=== PATIENT | female | born 1955 | race Asian ===

== ENCOUNTER 2025-07-24 14:51 | Inpatient (IN) | payer OTHER, MEDICARE, MEDICAID ==
[~2025-07-24] VITALS: Ht 152.4 cm; Wt 64.2 kg
--- NOTE | 2025-07-24 15:41 | ED.PDOC ---
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 She describes the pain as heaviness, radiated to the epigastric area, 6/10, constant, which increased with mobility and changing position. She has used heat patch at home, which has not helped with the pain. She also reports of same pain 3 months back, underwent abdominal ultrasound (normal finding). She denies nausea, vomiting, chest pain, shortness of breath, fever, dysuria and diarrhea. Chief Complaint: Abdominal Pain Time Seen by MD: 15:07 Allergies: Coded Allergies: NO KNOWN ALLERGIES (Unverified , 07/24/25) Mode of Arrival: Ambulatory Physical Exam General Appearance: Moderate Distress, No Apparent Distress, Normal HEENT: Normal ENT Inspection, Pharynx Normal, TMs Normal Neck: Full Range of Motion, Non-Tender, Normal, Normal Inspection Respiratory: Chest Non-Tender, Lungs Clear, No Accessory Muscle Use, No Respira tory Distress, Normal Breath Sounds Cardiovascular: No Edema, No JVD, No Murmur, No Gallop, Normal Peripheral Pulses, Regular Rate/Rhythm Breast Exam: Deferred Gastrointestinal: No Organomegaly, Non Tender, No Pulsatile Mass, Normal Bowel Sounds, Soft Genitalia: Deferred Pelvic: Deferred Rectal: Deferred Extremities: No calf tenderness, Normal capillary refill, Normal inspection, Normal range of motion, Non-tender, No pedal edema Neurologic: Alert, engineering surveyor II-XII nml as Tested, No Motor Deficits, Normal Affect, Normal Mood, No Sensory Deficits Cerebellar Function: Normal Reflexes: Normal Skin: Dry, Normal Color, Warm Lymphatic: No Adenopathy Was a procedure done? Was a procedure done?: No Differential Diagnosis Kidney stone (Female): Cholelithiasis, Hepatitis, Pancreatitis, Pyelonephritis Kidney stone (Male): Cholangitis, Pancreatitis, Pyelonephritis, Urolithiasis Urinary Problem (Male): Plelonephritis X-Ray, Labs, Meds, VS Vital Signs Date Time Temp Pulse Resp B/P (MAP) Pulse Ox O2 Delivery O2 Flow Rate FiO2 07/24/25 14:59 64 07/24/25 14:54 97.5 74 16 144/83 95 97.5 Lab Test 07/24/25 17:16 07/24/25 16:12 Range/Units Urine Color Light-yellow Yellow Urine Clarity Clear Clear Urine pH 6.0 5.0-9.0 Urine Specific [place] 1.017 1.001-1.035 Urine Protein Trace H Negative Urine Ketones Negative Negative Urine Blood Negative Negative /uL Urine Nitrite Negative Negative Urine Bilirubin Negative Negative Urine Urobilinogen Normal Negative mg/dL Urine Leukocyte Esterase 1+ Negative /uL Urine RBC <1 0 - 4 /hpf Urine Microscopic WBC 4 0-5 /HPF Urine Squamous Epithelial Cells Few <5 /hpf Urine Bacteria None seen None Seen /hpf Urine Mucus Few None Seen Urine Glucose Normal Normal mg/dL White Blood Count 7.4 4.4-10.8 10^3/uL Red Blood Count 4.51 4.0-5.20 10^6/uL Hemoglobin 14.2 12.2-16.2 g/dL Hematocrit 40.6 36.0-46.0 % Mean Corpuscular Volume 90.0 80.0-100.0 fL Mean Corpuscular Hemoglobin 31.5 28.0-32.0 pg Mean Corpuscular Hemoglobin Concent 35.0 32.0-36.0 g/dL Red Cell Distribution Width 13.6 11.8-14.3 % Platelet Count 199 140-450 10^3/uL Mean Platelet Volume 8.9 6.9-10.8 fL Neutrophils (%) (Auto) 54.7 37.0-80.0 % Lymphocytes (%) (Auto) 38.0 10.0-50.0 % Monocytes (%) (Auto) 5.6 0.0-12.0 % Eosinophils (%) (Auto) 1.3 0.0-7.0 % Basophils (%) (Auto) 0.4 0.0-2.0 % Neutrophils # (Auto) 4.0 1.6-8.6 10 ^3/uL Lymphocytes # (Auto) 2.8 0.4-5.4 10 ^3/uL Monocytes # (Auto) 0.4 0-1.3 10 ^3/uL Eosinophils # (Auto) 0.1 0-0.8 10 ^3/uL Basophils # (Auto) 0 0-0.2 10 ^3/uL Nucleated Red Blood Cells 0.0 % Sodium Level 142 136-145 mmol/L Potassium Level 3.7 3.5-5.1 mmol/L Chloride Level 104 98-107 mmol/L Carbon Dioxide Level 30 20-31 mmol/L Anion Gap 8 5-15 Blood Urea Nitrogen 12 9-23 mg/dL Creatinine 0.94 0.550-1.02 mg/dL Glomerular Filtration Rate Calc 65 >90 mL/min BUN/Creatinine Ratio 12.8 10.0-20.0 Serum Glucose 96 74-106 mg/dL Calcium Level 10.0 8.7-10.4 mg/dL Total Bilirubin 1.4 H 0.2-1.0 mg/dL Aspartate Amino Transferase (AST) 56 H 13-40 U/L Alanine Aminotransferase (ALT) 70 H 7-40 U/L Alkaline Phosphatase 93 46-116 U/L Troponin I High Sensitivity < 3 L </=34 ng/L Total Protein 7.7 5.7-8.2 g/dL Albumin 5.0 H 3.2-4.8 g/dL Current Medications Medications (Trade) Dose Ordered Sig/Alan Route Start Time Stop Time Status Last Admin Acetaminophen (Tylenol Tablet) 650 mg ONCE ONCE PO 07/24/25 15:45 07/24/25 15:46 DC 07/24/25 17:19 Time of 1ST Reevaluation: 22:14 Reevaluation 1ST: Unchanged Patient Education/Counseling: Diagnosis, Treatment, Prognosis, Need For Follow Up Family Education/Counseling: Diagnosis, Treatment, Prognosis, Need For Follow Up Comments Patient came to the hospital due to intractable abdominal pain Patient was basically within normal. CBC and CMP showed normal finding Abdominopelvic CT scan showed, Cirrhotic liver morphology. Ovoid area of hypodensity at the hepatic dome, may be artifact in this location when correlated with the coronal and sagittal reformatted images Abdominal ultrasound shows, 2.5 cm echogenic structure in the right lobe of the liver with slight vascularity Patient was given acetaminophen, ketorolac, IV fluid and Protonix Patient will be admitted for inpatient care and further workup SEPSIS Sepsis Screen Date sepsis recognized/suspect: Jul 24, 2025 Time Sepsis recognized/suspect: 1456 Recent Procedure: No On Antibiotic Therapy: No Respiratory Rate >20: No Heart Rate >90: No Temp<36 C (96.8 F) or >38.3 C: No SBP <90 or MAP <65 mmHG: No New Acute Mental Status Change: No Is the patient on CPAP, BIPAP,: No Physician Orders Electrocardigram (07/24/25 15:05) Chest Xray 1 View (07/24/25 15:34) Ct Ab Pel Wo Con-No Oral Or Iv (07/24/25 15:34) LIVER (07/24/25 19:35) Vital Signs Date Time Temp Pulse Resp B/P (MAP) Pulse Ox O2 Delivery O2 Flow Rate FiO2 07/24/25 14:59 64 07/24/25 14:54 97.5 74 16 144/83 95 97.5 Laboratory Tests Test 07/24/25 16:12 White Blood Count 7.4 10^3/uL (4.4-10.8) Medications Medications Dose Ordered Sig/Alan Route Start Time Stop Time Status Last Admin Dose Admin Acetaminophen 650 mg ONCE ONCE PO 07/24/25 15:45 07/24/25 15:46 DC 07/24/25 17:19 Departure 1 Departure Time of Disposition: 22:17 Impression: Primary Impression: Intractable abdominal pain Additional Impression: Liver mass Disposition: ADMITTED INPATIENT Admit to: Med Surg Condition: Guarded Critical Care Note Critical Care Time?: No Stability Stability form required: No Heart Score Heart Score: Heart Score Response (Comments) Value History N/A 0 EKG N/A 0 Age N/A 0 Risk Factors N/A 0 Troponin N/A 0 Total 0 YANIRA DIXON Jul 24, 2025 15:41
[2025-07-24 16:38] LABS: Hematocrit 40.6 % (36.0-46.0); Hemoglobin 14.2 g/dL (12.2-16.2); Mean Corpuscular Hemoglobin 31.5 pg (28.0-32.0); Mean Corpuscular Volume 90.0 fL (80.0-100.0); Nucleated Red Blood Cells % 0.0 %
--- NOTE | 2025-07-24 16:46 | DVH ---
CHEST RADIOGRAPH Indication: pneumonia Technique: Single frontal view of the chest was obtained COMPARISON: None FINDINGS: Lines and Tubes: None Lungs: Congestion Pleura: No effusion. No pneumothorax. Cardiomediastinal contours: Unremarkable Bones: Unremarkable IMPRESSION: Increased interstital prominence. This may represent pulmonary vascular congestion and/or viral pneum onia. Clinical correlation advised.
--- NOTE | 2025-07-24 16:53 | DVH ---
CLINICAL INFORMATION: Abdominal pain. TECHNIQUE: Axial CT images of the abdomen and pelvis were obtained without IV contrast. Coronal and s agittal reformatted images were obtained, reviewed, and stored. Evaluation of the parenchymal organs is limited without IV contrast. Evaluation of the bowel and mesentery is limited without oral contras t. All CT scans at this medical facility are performed using dose modulation techniques as appropriat e to a performed exam including the following: Automated exposure control was utilized; adjustment of the MA and/or KV according to patient size; and use of iterative reconstruction technique. CTDIvol = 7.78 mGy DLP = 405.2 mGy-cm COMPARISON: None FINDINGS: Lung bases: Atelectasis in the lung bases. Liver: Nodular contour of the liver, may be seen with cirrhosis in the appropriate clinical setting. Hypodensity at the hepatic dome may be artifact, although can not exclude a superimposed liver lesion in this location. Biliary: Nodular density at the gallbladder fundus, measuring up to 0.7 cm, may be seen with adenomyo matosis, although other etiologies can not be excluded. Spleen: Unremarkable. Pancreas: Grossly unremarkable. Adrenal glands: Unremarkable. No mass. Kidneys: No hydronephrosis. No renal or ureteral calculi. Left renal cyst measures up to 3.4 cm. Aorta/Vascular: Moderate atherosclerotic calcification. No abdominal aortic aneurysm. With Retroperitoneum: No mass or lymphadenopathy. Bowel/mesentery: No small bowel obstruction. No free air or free fluid. Appendix is not visualized. S cattered colonic diverticula without adjacent inflammatory changes to suggest diverticulitis. Moderat e stool in the colon. Pelvic organs: Uterus is anteverted. Bladder: Bladder is underdistended and not well evaluated. Abdominal wall: No mass or hernia. Bones: No acute fracture or suspicious intraosseous lesion. IMPRESSION: 1. Cirrhotic liver morphology. Ovoid area of hypodensity at the hepatic dome, may be artifact in this location when correlated with the coronal and sagittal reformatted images, although can not exclude a lesion in this location. Ultrasound could be considered to further evaluate. 2. Nodular density at the gallbladder fundus, may be seen with adenomyomatosis, although other etiolo gies can not be excluded. Ultrasound could be obtained to further evaluate. 3. Scattered colonic diverticula without adjacent inflammatory changes to suggest diverticulitis. 4. Additional findings as described above.
[2025-07-24 16:57] LABS: Alanine Aminotransferase 70 U/L (7-40); Alkaline Phosphatase 93 U/L (46-116); Anion Gap 8 (5-15); BUN/Creatinine Ratio 12.8 (10.0-20.0); Blood Urea Nitrogen 12 mg/dL (9-23); Calcium 10.0 mg/dL (8.7-10.4); Carbon Dioxide 30 mmol/L (20-31); Chloride 104 mmol/L (98-107); Glucose 96 mg/dL (74-106); Potassium 3.7 mmol/L (3.5-5.1); Sodium 142 mmol/L (136-145); Total Protein 7.7 g/dL (5.7-8.2)
[2025-07-24 16:58] LABS: Albumin 5.0 g/dL (3.2-4.8); Bilirubin, Total 1.4 mg/dL (0.2-1.0)
[2025-07-24] MEDS: ACETAMINOPHEN 325 MG TAB PO ONE (17:19)
[2025-07-24 18:12] LABS: Urine Protein, UAD TRACE (Negative)
--- NOTE | 2025-07-24 20:36 | DVH ---
INDICATION: liver mass TECHNIQUE: Multiple real-time sonographic images of the abdomen were obtained. COMPARISON: None FINDINGS: Increased echogenicity of the hepatic parenchyma suggesting steatosis. The liver measures 14.8 cm. No intrahepatic biliary ductal dilatation is noted. 2.5 x 2.5 x 2.4 cm echogenic structure n oted in the right lobe of the liver. Slight vascularity may represent hemangioma. The gallbladder wall measures 0.24 cm and is unremarkable. No gallstones or sludge is seen. The co mmon duct measures 0.2 cm and is unremarkable. No pericholecystic fluid is noted. Negative sonograph ic hernandez's sign. The right kidney measures 10.1 cm. No hydronephrosis. The pancreas is not well visualized due to obscuration from bowel gas. IMPRESSION: 1. Hepatic steatosis. 2. 2.5 cm echogenic structure in the right lobe of the liver with slight vascularity. 3. Finding may represent hemangioma. 4. Consider MRI for further evaluation. 5. No sonographic evidence for acute cholecystitis.
[2025-07-24] MEDS: SODIUM CHLORIDE 0.9% 1,000 ML IV ONE (23:43)
[2025-07-25] MEDS: PANTOPRAZOLE 40 MG/10 ML VIAL INJ IV ONE
[2025-07-25] MEDS: KETOROLAC TROMETH 30 MG/ML 1ML VIAL IV ONE (00:01)
[2025-07-25] MEDS ORDERED: DEXTROSE (50%) 50ML SYRG IV PRN (00:45)
[2025-07-25] MEDS ORDERED: ONDANSETRON HCL 4 MG/2 ML VIAL IV PRN (00:45)
[2025-07-25] MEDS ORDERED: MORPHINE SULFATE INJ 2 MG/ml SYRG IV PRN (00:45)
--- NOTE | 2025-07-25 01:14 | DVHHP2 ---
History of Present Illness Reason for Visit: Abdominal pain History of Present Illness 69-year-old female presents for evaluation of abdominal pain. Patient endorses a three day history of left-sided abdominal pain that is nonradiating. Patient reports pain being consistent for the past three days no nausea or vomiting. No diarrhea or fever. No other acute complaints. Currently rates the pain at 6/10 intensity. Past Medical History Diabetes, hepatitis-B mellitus and hypertension Past Surgical History Denies Family History Noncontributory Smoke: No ALCOHOL: none Drugs: None Lives: with Family Review of Systems Review of Systems Review of systems are currently negative otherwise addressed in HPI. Allergies: Coded Allergies: NO KNOWN ALLERGIES (Unverified , 07/24/25) Exam Vital Signs Vital Signs Date Time Temp Pulse Resp B/P (MAP) Pulse Ox O2 Delivery O2 Flow Rate FiO2 07/24/25 23:40 98.2 64 17 141/81 (101) 97 98.2 07/24/25 23:40 Room Air Exam Gen: 69-year-old female in mild distress Skin: Warm, dry, normal color and texture, no rash. HEENT: Normocephalic atraumatic, mucous membranes moist and pink. Neck: Cervical and supraclavicular nodes normal without enlargement, trachea is midline, thyroid gland is normal without masses. Pulmonary: Clear to auscultation and percussion bilaterally. Cardiac: Regular rate and rhythm. No murmur Abdomen: Soft, right-sided abdominal tenderness, nondistended, bowel sounds present all 4 quadrants, no guarding, no rigidity, no organomegaly. Extremities: No cyanosis, clubbing, no edema Neuro: Cranial nerves II through XII grossly intact, normal affect and speech, no focal motor deficits. Labs/Xrays ORDERING PHYSICIAN: YANIRA DIXON PROCEDURE(s): LIVUS - LIVER REASON: liver mass? ORDER NUMBER(s): [id number], ACCESSION NUMBER(s): [id number] INDICATION: liver mass TECHNIQUE: Multiple real-time sonographic images of the abdomen were obtained. COMPARISON: None FINDINGS: Increased echogenicity of the hepatic parenchyma suggesting steatosis. The liver measures 14.8 cm. No intrahepatic biliary ductal dilatation is noted. 2.5 x 2.5 x 2.4 cm echogenic structure noted in the right lobe of the liver. Slight vascularity may represent hemangioma. The gallbladder wall measures 0.24 cm and is unremarkable. No gallstones or sludge is seen. The common duct measures 0.2 cm and is unremarkable. No pericholecystic fluid is noted. Negative sonographic hernandez's sign. The right kidney measures 10.1 cm. No hydronephrosis. The pancreas is not well visualized due to obscuration from bowel gas. IMPRESSION: 1. Hepatic steatosis. 2. 2.5 cm echogenic structure in the right lobe of the liver with slight vascularity. 3. Finding may represent hemangioma. 4. Consider MRI for further evaluation. ORDERING PHYSICIAN: YANIRA DIXON PROCEDURE(s): ABPL - CT AB PEL WO CON-NO ORAL OR IV REASON: ab.pain ORDER NUMBER(s): [id number], ACCESSION NUMBER(s): [id number] CLINICAL INFORMATION: Abdominal pain. TECHNIQUE: Axial CT images of the abdomen and pelvis were obtained without IV contrast. Coronal and sagittal reformatted images were obtained, reviewed, and stored. Evaluation of the parenchymal organs is limited without IV contrast. Evaluation of the bowel and mesentery is limited without oral contrast. All CT scans at this medical facility are performed using dose modulation techniques as appropriate to a performed exam including the following: Automated exposure control was utilized; adjustment of the MA and/or KV according to patient size; and use of iterative reconstruction technique. CTDIvol = 7.78 mGy DLP = 405.2 mGy-cm COMPARISON: None FINDINGS: Lung bases: Atelectasis in the lung bases. Liver: Nodular contour of the liver, may be seen with cirrhosis in the appropriate clinical setting. Hypodensity at the hepatic dome may be artifact, although can not exclude a superimposed liver lesion in this location. Biliary: Nodular density at the gallbladder fundus, measuring up to 0.7 cm, may be seen with adenomyomatosis, although other etiologies can not be excluded. Spleen: Unremarkable. Pancreas: Grossly unremarkable. Adrenal glands: Unremarkable. No mass. Kidneys: No hydronephrosis. No renal or ureteral calculi. Left renal cyst measures up to 3.4 cm. Aorta/Vascular: Moderate atherosclerotic calcification. No abdominal aortic aneurysm. With Retroperitoneum: No mass or lymphadenopathy. Bowel/mesentery: No small bowel obstruction. No free air or free fluid. Appendix is not visualized. Scattered colonic diverticula without adjacent inflammatory changes to suggest diverticulitis. Moderate stool in the colon. Pelvic organs: Uterus is anteverted. Bladder: Bladder is underdistended and not well evaluated. Abdominal wall: No mass or hernia. Bones: No acute fracture or suspicious intraosseous lesion. IMPRESSION: 1. Cirrhotic liver morphology. Ovoid area of hypodensity at the hepatic dome, may be artifact in this location when correlated with the coronal and sagittal reformatted images, although can not exclude a lesion in this location. Ultrasound could be considered to further evaluate. 2. Nodular density at the gallbladder fundus, may be seen with adenomyomatosis, although other etiologies can not be excluded. Ultrasound could be obtained to further evaluate. 3. Scattered colonic diverticula without adjacent inflammatory changes to suggest diverticulitis. 4. Additional findings as described above. Labs Test 07/24/25 17:16 07/24/25 16:12 Range/Units Urine Color Light-yellow Yellow Urine Clarity Clear Clear Urine pH 6.0 5.0-9.0 Urine Specific [place] 1.017 1.001-1.035 Urine Protein Trace H Negative Urine Ketones Negative Negative Urine Blood Negative Negative /uL Urine Nitrite Negative Negative Urine Bilirubin Negative Negative Urine Urobilinogen Normal Negative mg/dL Urine Leukocyte Esterase 1+ Negative /uL Urine RBC <1 0 - 4 /hpf Urine Microscopic WBC 4 0-5 /HPF Urine Squamous Epithelial Cells Few <5 /hpf Urine Bacteria None seen None Seen /hpf Urine Mucus Few None Seen Urine Glucose Normal Normal mg/dL White Blood Count 7.4 4.4-10.8 10^3/uL Red Blood Count 4.51 4.0-5.20 10^6/uL Hemoglobin 14.2 12.2-16.2 g/dL Hematocrit 40.6 36.0-46.0 % Mean Corpuscular Volume 90.0 80.0-100.0 fL Mean Corpuscular Hemoglobin 31.5 28.0-32.0 pg Mean Corpuscular Hemoglobin Concent 35.0 32.0-36.0 g/dL Red Cell Distribution Width 13.6 11.8-14.3 % Platelet Count 199 140-450 10^3/uL Mean Platelet Volume 8.9 6.9-10.8 fL Neutrophils (%) (Auto) 54.7 37.0-80.0 % Lymphocytes (%) (Auto) 38.0 10.0-50.0 % Monocytes (%) (Auto) 5.6 0.0-12.0 % Eosinophils (%) (Auto) 1.3 0.0-7.0 % Basophils (%) (Auto) 0.4 0.0-2.0 % Neutrophils # (Auto) 4.0 1.6-8.6 10 ^3/uL Lymphocytes # (Auto) 2.8 0.4-5.4 10 ^3/uL Monocytes # (Auto) 0.4 0-1.3 10 ^3/uL Eosinophils # (Auto) 0.1 0-0.8 10 ^3/uL Basophils # (Auto) 0 0-0.2 10 ^3/uL Nucleated Red Blood Cells 0.0 % Sodium Level 142 136-145 mmol/L Potassium Level 3.7 3.5-5.1 mmol/L Chloride Level 104 98-107 mmol/L Carbon Dioxide Level 30 20-31 mmol/L Anion Gap 8 5-15 Blood Urea Nitrogen 12 9-23 mg/dL Creatinine 0.94 0.550-1.02 mg/dL Glomerular Filtration Rate Calc 65 >90 mL/min BUN/Creatinine Ratio 12.8 10.0-20.0 Serum Glucose 96 74-106 mg/dL Calcium Level 10.0 8.7-10.4 mg/dL Total Bilirubin 1.4 H 0.2-1.0 mg/dL Aspartate Amino Transferase (AST) 56 H 13-40 U/L Alanine Aminotransferase (ALT) 70 H 7-40 U/L Alkaline Phosphatase 93 46-116 U/L Troponin I High Sensitivity < 3 L </=34 ng/L Total Protein 7.7 5.7-8.2 g/dL Albumin 5.0 H 3.2-4.8 g/dL SEPSIS Sepsis Screen Date sepsis recognized/suspect: Jul 24, 2025 Time Sepsis recognized/suspect: 1456 Recent Procedure: No On Antibiotic Therapy: No Respiratory Rate >20: No Heart Rate >90: No Temp<36 C (96.8 F) or >38.3 C: No SBP <90 or MAP <65 mmHG: No New Acute Mental Status Change: No Is the patient on CPAP, BIPAP,: No Physician Orders LIVER (07/24/25 19:35) Admit (07/24/25 23:49) * [facility] Financial Sales Associate (07/25/25 00:38) Pantoprazole (Protonix) (07/25/25 10:00) Losartan Tablet (Cozaar Tablet) (07/25/25 10:00) (Nf) Tenofovir (07/25/25 10:00) Lipase (07/25/25 04:00) Comprehensive Metabolic Panel (07/25/25 04:00) Ceftriaxone 1gm/50ml (Rocephin) (07/25/25 09:00) Glucose Blood (Accu-Chek Comfort Curve T (07/25/25 07:00) Insulin R (Human) (Insulin R) (07/25/25 07:00) Dextrose 50% Syringe (07/25/25 00:45) Hydrocodone-Acet 5/325mg Tab (Cisco 5/32 (07/25/25 00:45) Ondansetron Hcl (Zofran) (07/25/25 00:45) Condition: Stable (07/25/25 00:38) Acetaminophen Tablet (Tylenol Tablet) (07/25/25 00:45) Clear Liq Diet (07/25/25 Breakfast) Bedrest With Bathroom Privileg (07/25/25 00:38) Morphine Sulfate Injection (07/25/25 00:45) Vital Signs Date Time Temp Pulse Resp B/P (MAP) Pulse Ox O2 Delivery O2 Flow Rate FiO2 07/24/25 23:40 98.2 64 17 141/81 (101) 97 98.2 07/24/25 23:40 64 17 97 Room Air Laboratory Tests Test 07/24/25 16:12 White Blood Count 7.4 10^3/uL (4.4-10.8) Medications Medications Dose Ordered Sig/Alan Route Start Time Stop Time Status Last Admin Dose Admin Acetaminophen 650 mg ONCE ONCE PO 07/24/25 15:45 07/24/25 15:46 DC 07/24/25 17:19 650 MG Ketorolac Tromethamine 15 mg ONCE ONCE IV 07/24/25 22:15 07/24/25 22:18 DC 07/25/25 00:01 15 MG Pantoprazole Sodium 40 mg ONCE ONCE IV 07/24/25 22:15 07/24/25 22:18 DC 07/25/25 00:00 40 MG Sodium Chloride 1,000 ml @ 1,000 mls/hr Q1H ONCE IV 07/24/25 22:15 07/24/25 23:14 DC 07/24/25 23:43 1,000 MLS/HR Assessment/Plan Assessment/Plan Assessment Acute abdominal pain Hypertension UTI Diabetes mellitus Plan Admit the patient to [facility] to the hospitalist GI consultation Clear liquid diet Pain management Continue treatment per orders. Plan discussed with: Patient My Orders Orders - MAYKEL EVANS Procedure Category Date Status Time Admit ADMIT 07/24/25 Transmitted 23:49 * [facility] Financial Sales Associate CONS 07/25/25 Transmitted 00:38 Pantoprazole PHA 07/25/25 Logged (Protonix) 10:00 Losartan Tablet PHA 07/25/25 Logged (Cozaar Tablet) 10:00 (Nf) Tenofovir PHA 07/25/25 Logged 10:00 Lipase LAB 07/25/25 Logged 04:00 Comprehensive LAB 07/25/25 Logged Metabolic Panel 04:00 Ceftriaxone 1gm/50ml PHA 07/25/25 Logged (Rocephin) 09:00 Glucose Blood PHA 07/25/25 Logged (Accu-Chek Comfort 07:00 Insulin R (Human) PHA 07/25/25 Logged (Insulin R) 07:00 Dextrose 50% Syringe PHA 07/25/25 Logged 00:45 Hydrocodone-Acet PHA 07/25/25 Logged 5/325mg Tab (Cisco 00:45 Ondansetron Hcl PHA 07/25/25 Logged (Zofran) 00:45 Condition: Stable ARIELLE 07/25/25 In Process 00:38 Acetaminophen Tablet PHA 07/25/25 Logged (Tylenol Tablet) 00:45 Clear Liq Diet DIET 07/25/25 Transmitted Breakfast Bedrest With Bathroom ARIELLE 07/25/25 In Process Privileg 00:38 Morphine Sulfate PHA 07/25/25 Logged Injection 00:45 Date of Service: Jul 24, 2025 Billing Provider: MAYKEL EVANS Common Visit Codes: [id number] INP/OBS CARE (MOD) MAYKEL EVANS Jul 25, 2025 01:14
[2025-07-25 02:20] VITALS: BP 149/75; PULSE 66; RESP 15; TEMP 97.7; O2SAT 95
[2025-07-25] MEDS ORDERED: TENO300T9 PO (02:33)
[2025-07-25] MEDS ORDERED: LOSA-534 PO (02:33)
[2025-07-25] MEDS ORDERED: GLIP5TAB21 PO (02:33)
[2025-07-25] MEDS ORDERED: FAMO-12 PO (02:33)
[2025-07-25] MEDS: HYDROcodone-ACET 5/325MG TAB PO PRN (03:00)
[2025-07-25 05:00] VITALS: BP 139/70; PULSE 70; RESP 15; TEMP 97.9; O2SAT 96
--- NOTE | 2025-07-25 06:12 | ECG ---
[facility] Test Date: 2025-07-24 Test Time: 14:59:53 Pat Name: SISSY SALAS Department: ED Room: 0294 B Gender: F Livestock Nutritionist: TAQUERIA : 1955 Requested By: ELLIOTT MEMBRENO Order Number: [id number] Reading MD: Tray Ghotra Measurements Intervals [place] Rate: 64 P: 60 MI: 170 QRS: 56 QRSD: 90 T: 38 QT: 427 QTc: 441 Interpretive Statements Sinus rhythm Electronically Signed On 07-25-2025 14:27:53 PDT by Tray Ghotra Please click the below link to view image of tracing.
[2025-07-25 06:26] LABS: Alkaline Phosphatase 77 U/L (46-116); Anion Gap 6 (5-15); BUN/Creatinine Ratio 13.8 (10.0-20.0); Blood Urea Nitrogen 11 mg/dL (9-23); Calcium 8.9 mg/dL (8.7-10.4); Carbon Dioxide 27 mmol/L (20-31); Lipase 44 U/L (12-53); Potassium 3.5 mmol/L (3.5-5.1); Sodium 142 mmol/L (136-145); Total Protein 6.6 g/dL (5.7-8.2)
[2025-07-25 06:27] LABS: Albumin 4.1 g/dL (3.2-4.8)
[2025-07-25] MEDS: ACCU-CHEK COMFORT CURVE STRIP VI SCH (06:39)
[2025-07-25 06:41] LABS: Alanine Aminotransferase 56 U/L (7-40); Bilirubin, Total 1.5 mg/dL (0.2-1.0); Chloride 109 mmol/L (98-107); Glucose 110 mg/dL (74-106)
[2025-07-25] MEDS: InsuLIN REG 1unit/0.01ml Soln (100units/ml) SC SCH (06:55)
[2025-07-25 08:00] VITALS: RESP 18; O2SAT 97
[2025-07-25 09:01] VITALS: BP 135/77; PULSE 60; RESP 16; TEMP 97.1; O2SAT 95
[2025-07-25] MEDS: PANTOPRAZOLE 40 MG/10 ML VIAL INJ IV SCH (09:05)
[2025-07-25] MEDS: LOSARTAN POTASSIUM 50 MG TAB PO SCH (09:30)
[2025-07-25] MEDS: TENOFOVIR DISOPROXIL 300 MG PO SCH (10:00)
[2025-07-25 13:00] VITALS: BP 156/88; PULSE 61; RESP 16; TEMP 98.2; O2SAT 96
[2025-07-25 17:00] VITALS: BP 165/99; PULSE 62; RESP 18; TEMP 97; O2SAT 93
[2025-07-25] MEDS: ACETAMINOPHEN 325 MG TAB PO PRN (17:49)
--- NOTE | 2025-07-25 19:05 | DVHDS2 ---
Discharge Summary Date of Admission Jul 24, 2025 at 23:49 Date of Discharge: Jul 25, 2025 Labs/Diagnostic Data: Laboratory Results Test 07/25/25 17:44 07/25/25 05:35 07/24/25 17:16 07/24/25 16:12 POC Glucose 133 mg/dl (70-106) Sodium Level 142 mmol/L (136-145) Potassium Level 3.5 mmol/L (3.5-5.1) Chloride Level 109 mmol/L (98-107) Carbon Dioxide Level 27 mmol/L (20-31) Anion Gap 6 (5-15) Blood Urea Nitrogen 11 mg/dL (9-23) Creatinine 0.80 mg/dL (0.550-1.02) Glomerular Filtration Rate Calc 79 mL/min (>90) BUN/Creatinine Ratio 13.8 (10.0-20.0) Serum Glucose 110 mg/dL (74-106) Calcium Level 8.9 mg/dL (8.7-10.4) Total Bilirubin 1.5 mg/dL (0.2-1.0) Aspartate Amino Transferase (AST) 43 U/L (13-40) Alanine Aminotransferase (ALT) 56 U/L (7-40) Alkaline Phosphatase 77 U/L (46-116) Total Protein 6.6 g/dL (5.7-8.2) Albumin 4.1 g/dL (3.2-4.8) Lipase 44 U/L (12-53) Urine Color Light-yellow (Yellow) Urine Clarity Clear (Clear) Urine pH 6.0 (5.0-9.0) Urine Specific [place] 1.017 (1.001-1.035) Urine Protein Trace (Negative) Urine Ketones Negative (Negative) Urine Blood Negative /uL (Negative) Urine Nitrite Negative (Negative) Urine Bilirubin Negative (Negative) Urine Urobilinogen Normal mg/dL (Negative) Urine Leukocyte Esterase 1+ /uL (Negative) Urine RBC <1 /hpf (0 - 4) Urine Microscopic WBC 4 /HPF (0-5) Urine Squamous Epithelial Cells Few /hpf (<5) Urine Bacteria None seen /hpf (None Seen) Urine Mucus Few (None Seen) Urine Glucose Normal mg/dL (Normal) White Blood Count 7.4 10^3/uL (4.4-10.8) Red Blood Count 4.51 10^6/uL (4.0-5.20) Hemoglobin 14.2 g/dL (12.2-16.2) Hematocrit 40.6 % (36.0-46.0) Mean Corpuscular Volume 90.0 fL (80.0-100.0) Mean Corpuscular Hemoglobin 31.5 pg (28.0-32.0) Mean Corpuscular Hemoglobin Concent 35.0 g/dL (32.0-36.0) Red Cell Distribution Width 13.6 % (11.8-14.3) Platelet Count 199 10^3/uL (140-450) Mean Platelet Volume 8.9 fL (6.9-10.8) Neutrophils (%) (Auto) 54.7 % (37.0-80.0) Lymphocytes (%) (Auto) 38.0 % (10.0-50.0) Monocytes (%) (Auto) 5.6 % (0.0-12.0) Eosinophils (%) (Auto) 1.3 % (0.0-7.0) Basophils (%) (Auto) 0.4 % (0.0-2.0) Neutrophils # (Auto) 4.0 10 ^3/uL (1.6-8.6) Lymphocytes # (Auto) 2.8 10 ^3/uL (0.4-5.4) Monocytes # (Auto) 0.4 10 ^3/uL (0-1.3) Eosinophils # (Auto) 0.1 10 ^3/uL (0-0.8) Basophils # (Auto) 0 10 ^3/uL (0-0.2) Nucleated Red Blood Cells 0.0 % Troponin I High Sensitivity < 3 ng/L (</=34) Other Laboratory Tests 07/25/25 05:35 07/24/25 16:12 Brief Hx & Hospital Course: Patient admitted for abdominal pain, wishes to leave AMA. Will see her PCP as outpatient. Condition at Discharge: Poor Final Diagnosis/Problems List Acute abdominal pain Hypertension UTI Diabetes mellitus Discharge Disposition: AMA Discharge Instruct/Medications Scheduled Glipizide (Glipizide), 1 TAB PO BID, (Reported) Losartan Potassium (Losartan Potassium), 1 TAB PO BID, (Reported) Tenofovir Disoproxil Fumarate (Tenofovir Disoproxil Fuma), 1 TAB PO DAILY, (Reported) Discontinued Medications Famotidine (Famotidine), 1 TAB PO DAILY, (Reported) Discharge Statement: "Patient was advised to return to the ER or call 911 if any headaches, dizziness, shortness of breath, chest pain, abdominal pain, bleeding, fevers, or worsening of medical condition. Patient was counseled about treatment plan, medications, possible side effects, patientverbalized understanding. All questions were answered to the best of my ability. This discharge took greater then 30 minutes in planning, reviewing documentation, counseling the patient, and discussing with other team members." ASSESSMENT ASSESSMENT Assessment Date of Service: Jul 25, 2025 Billing Provider: ALESSANDRO WILLIAM MD Common Visit Codes: 45490-OSI/OBS DISCH DAY <30MIN ALESSANDRO WILLIAM MD Jul 25, 2025 19:05
== END 2025-07-25 18:00 | disposition left against medical advice (07) | DRG 690 ==
LOC: ER 14:51 → OVERFLOW 23:49 → WEST WING 07-25 02:23
PROVIDERS: ADMIT Internal Medicine; ATTEND Internal Medicine
DX: N30.00 Acute cystitis without hematuria (principal); I10 Essential (primary) hypertension; Z53.29 Procedure and treatment not carried out because of patient's decision for other reasons; K74.60 Unspecified cirrhosis of liver; E11.9 Type 2 diabetes mellitus without complications; Z79.899 Other long term (current) drug therapy
CPT/HCPCS: 36415; 71045; 74176; 76705; 80053; 81001; 82105; 82962; 83036; 83690; 84484; 85025; 93005; 96361; 96374; G0378; J1815; J1885; J2470